=== PATIENT | male | born 1990 | race Caucasian/White ===

== ENCOUNTER 2016-12-23 12:44 | Emergency (ER) | payer SELFPAY ==
[2016-12-23 12:50] VITALS: BP 157/85
--- NOTE | 2016-12-23 14:05 | ER Document Report ---
ED Animal Bite - General Chief Complaint: Snake Bite Stated Complaint: SNAKE BITE Time Seen by Provider: 12/23/16 14:04 Notes: The patient is a 26-year-old male who presents with multiple snakebites on both hands after he found the snake in his child's room and caught it. He brought the snake into the emergency room after cutting off the head. He is not complaining of any pain, redness, numbness, tingling or streaking. TRAVEL OUTSIDE OF THE [place] IN LAST 30 DAYS: No - Related Data Allergies/Adverse Reactions: Penicillins Allergy (Verified 12/23/16 12:49) Past Medical History - General Information source: Patient - Social History Smoking Status: Current Every Day Smoker Family History: Reviewed & Not Pertinent Patient has suicidal ideation: No Patient has homicidal ideation: No Renal/ Medical History: Denies: Hx Peritoneal Dialysis Review of Systems - Review of Systems Notes: REVIEW OF SYSTEMS: CONSTITUTIONAL: -fevers, -chills EENT: -eye pain, -difficulty swallowing, -nasal congestion CARDIOVASCULAR:-chest pain, -syncope. RESPIRATORY: -cough, -SOB GASTROINTESTINAL: -abdominal pain, -nausea, -vomiting, -diarrhea GENITOURINARY: -dysuria, -hematuria MUSCULOSKELETAL: -back pain, -neck pain SKIN: +multiple hand bites HEMATOLOGIC: -easy bruising or bleeding. LYMPHATIC: -swollen, enlarged glands. NEUROLOGICAL: -altered mental status or loss of consciousness, -headache, - neurologic symptoms PSYCHIATRIC: -anxiety, -depression. ALL OTHER SYSTEMS REVIEWED AND NEGATIVE. Physical Exam - Vital signs Vitals: Temp Pulse Resp BP Pulse Ox 97.6 F 77 18 157/85 H 98 12/23/16 12:50 12/23/16 12:50 12/23/16 12:50 12/23/16 12:50 12/23/16 12:50 - Notes Notes: PHYSICAL EXAMINATION: GENERAL: Well-appearing, well-nourished and in no acute distress. HEAD: Atraumatic, normocephalic. EYES: Pupils equal round and reactive to light, extraocular movements intact, sclera anicteric, conjunctiva are normal. ENT: nares patent, oropharynx clear without exudates. Moist mucous membranes. NECK: Normal range of motion, supple without lymphadenopathy LUNGS: Breath sounds clear to auscultation bilaterally and equal. No wheezes rales or rhonchi. HEART: Regular rate and rhythm without murmurs ABDOMEN: Soft, nontender, normoactive bowel sounds. No guarding, no rebound. No masses appreciated. EXTREMITIES: Multiple superficial puncture wounds over dorsal surface of B/L hands, no redness/discharge, all tendons intact and brisk capillary refill, normal range of motion, no pitting or edema. No cyanosis. NEUROLOGICAL: Cranial nerves grossly intact. Normal speech, normal gait. Normal sensory, motor, and reflex exams. PSYCH: Normal mood, normal affect. Course - Re-evaluation Re-evalutation: Snake identified as a rat snake in the emergency room. This is nonvenomous. Patient has no streaking or neuro symptoms to suggest a venomous bite. Patient washed his hands and the superficial wounds with soap and water. Given strict return precautions and he understands. - Vital Signs Vital signs: Temp Pulse Resp BP Pulse Ox 97.6 F 77 18 157/85 H 98 12/23/16 12:50 12/23/16 12:50 12/23/16 12:50 12/23/16 12:50 12/23/16 12:50 Discharge - Discharge Clinical Impression: Bite, snake, non-venomous Qualifiers: Encounter type: initial encounter Qualified Code(s): W59.11XA - Bitten by nonvenomous snake, initial encounter Condition: Stable Disposition: HOME, SELF-CARE Instructions: Snakebites ([facility]) Additional Instructions: Snakebites Of about 3000 snake species throughout the world, only about 15% worldwide and 20% in the [place] are dangerous to humans because of venom or toxic salivary secretions. At least one species of venomous snake is [place] to every state in the except [place], [place], and [place]. Almost all are crotalines (also called pit vipers because of pit-like depressions on either side of the head that are heat-sensing organs), consisting of rattlesnakes, copperheads, and cottonmouths (water moccasins). Between 7000 and 8000 venomous snakebites occur annually. Rattlesnakes account for the majority of bites and almost all deaths. Copperheads and, to a lesser extent, cottonmouths account for most other venomous bites. Coral snakes (elapids) and imported species (in zoos, schools, snake farms, and amateur and professional collections) account for < 1% of all bites. Most victims are males between 17 yr and 27 yr, of whom 50% are intoxicated and deliberately handled or molested the snake. Most bites occur on the upper extremities. Only 5 to 6 deaths occur annually. Risks for include age extremes, handling of captive snakes (rather than wild encounters), delay in treatment, and undertreatment. The venom of most [place] pit vipers produces local effects and coagulopathy and other systemic effects. Results may include local tissue damage ; vascular defects; hemolysis; a disseminated intravascular coagulation (DIC)- like (defibrination) syndrome; and pulmonary, cardiac, renal, and neurologic defects. Venom alters capillary membrane permeability, causing extravasation of electrolytes, albumin, and RBCs through vessel chawla into the envenomated site. This process may occur in the lungs, myocardium, kidneys, peritoneum, and, rarely, the [employer]. Initially, edema, hypoalbuminemia, and hemoconcentration occur. Later, blood and fluids pool in the microcirculation, causing hypotension , lactic acidemia, shock, and, in severe cases, multisystem organ failure. Effective circulating blood volume falls and may contribute to cardiac and renal failure. Clinically significant thrombocytopenia (platelet count < 20,000/ L) is common in severe rattlesnake bites and may occur alone or in combination with other coagulopathies. Venom-induced intravascular clotting may trigger defibrination syndrome, resulting in epistaxis, gingival bleeding, hematemesis, hematuria, internal hemorrhage, as well as spontaneous bleeding at the bite site and venipuncture sites. Renal failure may result from severe hypotension, hemolysis, rhabdomyolysis, nephrotoxic venom effects, or a DIC-like syndrome. Proteinuria, hemoglobinuria, and myoglobinuria may occur in severe rattlesnake bites. The venom of most [place] pit vipers produces very minor changes in neuromuscular conduction, except for Hubbard and Eastern diamondback rattlesnake venom, which may cause serious neurologic deficits. A snakebite, whether from a venomous or nonvenomous snake, usually causes terror , often with autonomic manifestations (eg, nausea, vomiting, tachycardia, diarrhea, diaphoresis), which may be difficult to distinguish from systemic manifestations of envenomation. Nonvenomous snakebites cause only local symptoms and signs, usually pain and 2 to 4 rows of scratches from the snake's upper jaw at the bite site. Symptoms and signs of envenomation may be local, systemic, coagulopathic, or a combination, depending on degree of envenomation and species of snake. About 25% of pit viper bites are dry (venom is not deposited), and no systemic symptoms or signs develop. Local signs include fang edilson(s) and scratch(es). If envenomation has occurred, edema and erythema or ecchymosis at the bite site and adjacent tissues will occur, usually within 30 to 60 min. Edema progresses rapidly and may involve the entire extremity within hours. Lymphangitis and enlarged, tender regional lymph nodes may develop; temperature increases over the bite area. In moderate or severe envenomations, ecchymosis is common and may appear at and around the bite site within 3 to 6 h. Ecchymosis is most severe after bites by Eastern and Western diamondbacks; cottonmouths; and prairie, [place], and timber rattlesnakes. Ecchymosis is less common after copperhead and Hubbard rattlesnake bites. The skin around the bite may appear tense and discolored. Bullae, serous, hemorrhagic, or both, usually appear at the bite site within 8 h. Edema resulting from [place] rattlesnake envenomations is usually limited to dermal and subcutaneous tissues, although severe envenomation rarely produces edema in subfascial tissue, causing compartment syndrome (defined as compartment pressures = 30 mm Hg over 1 h). Necrosis around the bite site is common after rattlesnake envenomations. Most venom effects on soft tissues peak within 2 to 4 days. Systemic manifestations of envenomation include nausea, vomiting, diaphoresis, anxiety, confusion, spontaneous bleeding, fever, hypotension, and shock. Some rattlesnake bite victims develop a rubbery, minty, or metallic taste in their mouth. The venom of most [place] pit vipers produces minor neuromuscular conduction changes, including generalized weakness and paresthesias and muscle fasciculations. Some patients may have alterations in mental status. Venom of Hubbard and Eastern diamondback rattlesnakes may cause serious neurologic deficits, including respiratory depression. Rattlesnake envenomations may induce various coagulation abnormalities, including thrombocytopenia, prolongation of PT (measured by the INR) or activated PTT, hypofibrinogenemia, elevated fibrin degradation products, or a combination of these disorders, resembling a DIC-like (defibrination) syndrome. Thrombocytopenia is usually the first manifestation and may be asymptomatic or, in the presence of a multicomponent coagulopathy, cause spontaneous bleeding. Victims with coagulopathy typically hemorrhage from the bite site or from mucous membranes, hematemesis, hematochezia, hematuria, or a combination. A rise in Hct is an early finding secondary to hemoconcentration. Later, Hct may fall as a result of fluid replacement and blood loss from the DIC-like syndrome. In severe cases , hemolysis may cause a rapid fall in Hct. A dry pit viper bite is diagnosed when no symptoms or signs of envenomation appear over 8 h. Severity of envenomation depends on the size and species of the snake ( rattlesnakes > cottonmouths > copperheads); the amount of venom injected; the number of bites; the location and depth of the bite (eg, envenomation in bites to the head and trunk tends to be more severe than in bites to the extremities) ; the age, size, and health of the victim; the time elapsed before treatment; and the victim's susceptibility (response) to the venom. Severity of envenomation can be graded as minimal, moderate, or severe, based on the most severe of the local findings, systemic symptoms and signs, coagulation parameters, and laboratory results. Grading should be determined by the most severe symptom, sign, or laboratory finding. Envenomation may progress rapidly from minimal to severe and must be continually reassessed. In the emergency department, primary attention should be given to establishing or maintaining an airway, breathing, and circulation. Circumferential extremity measurements should be performed on arrival and every 15 to 20 min until local progression subsides; it is also useful to outline the margins of local edema with an indelible marker to assess progression of local envenomation. All but trivial pit viper bites require a baseline CBC (including platelets), coagulation profile (eg, PT, PTT, fibrinogen), fibrin degradation products, and urinalysis, as well as measurement of electrolytes, BUN, and creatinine. For moderate and severe envenomations, patients require blood typing and cross matching; ECG and chest x-ray; and CK tests, usually every 4 h for the 1st 12 h and then daily or as governed by the patient's status. In coral snake bites, neurotoxic venom effects require monitoring of O2 saturation and baseline and serial pulmonary function tests (eg, peak flow, vital capacity). All pit viper bite victims should be observed closely in the emergency department or ICU for at least 8 h. Patients without evidence of envenomation after 8 h may be sent home after adequate wound care (see Bites and Stings: Adjunctive measures <http://[email or web address]>). Coral snake bite victims should be monitored for at least 12 h in an intensive care setting in the event that respiratory paralysis develops. Envenomation initially assessed as mild may progress to severe within several hours. Without close monitoring and appropriate treatment, the patient could . Treatment may include respiratory support, benzodiazepines for anxiety and sedation, opioids for pain, and fluid replacement and vasopressor support for shock. Most coagulopathies respond to sufficient quantities of neutralizing antivenom. Transfusions (eg, packed RBCs, fresh frozen plasma, cryoprecipitate, platelets) may be required but should not be given before the patient has received adequate quantities of neutralizing antivenom. Tracheostomy may be needed if trismus, laryngeal spasm, or excessive salivation is present. Along with aggressive supportive care, antivenom is the mainstay of treatment for patients with moderate to severe envenomations. For pit viper envenomation, equine-derived antivenom has been largely replaced by ovine-derived Crotalidae polyvalent immune Curly antivenom (purified Curly fragments of IgG harvested from pit viper venom-immunized sheep). The effectiveness of the equine-derived antivenom is time and dose related; it is most effective within 4 h of the envenomation and less effective after 12 h, although it may reverse coagulopathies after 24 h. Recent case reports suggest that Crotalidae polyvalent immune Curly may not be affected by time and dose and may be effective even when started 24 h after envenomation. Crotalidae polyvalent immune uCrly is also safer than equine-derived antivenom, although it can still cause acute (cutaneous or anaphylactic) reactions and delayed hypersensitivity reactions (serum sickness). Forms: Return to Work
== END 2016-12-23 14:08 | disposition home or self-care (01) ==
LOC: ER 12:44
DX: S60.572A Other superficial bite of hand of left hand, initial encounter (principal); S60.571A Other superficial bite of hand of right hand, initial encounter; W59.11XA Bitten by nonvenomous snake, initial encounter; Y93.89 Activity, other specified; Y92.009 Unspecified place in unspecified non-institutional (private) residence as the place of occurrence of the external cause; F17.200 Nicotine dependence, unspecified, uncomplicated
CPT/HCPCS: 99283

== ENCOUNTER 2017-01-06 22:24 | Emergency (ER) | payer SELFPAY ==
[2017-01-06] MEDS ORDERED: ONDANSETRON HCL INJ/PF 4 MG/2 ML SDV IV ONE (22:58)
[2017-01-06] MEDS ORDERED: NORMAL SALINE 1000 ML 1,000 ML IV ONE (22:58)
[2017-01-06 23:23] LABS: ABSOLUTE EOSINOPHILS # (AUTO) 0.1 10^3/uL (0.0-0.6); ABSOLUTE LYMPHOCYTES (AUTO) 3.6 10^3/uL (0.5-4.7); ABSOLUTE MONOCYTES (AUTO) 0.7 10^3/uL (0.1-1.4); ABSOLUTE NEUT (AUTO) 8.1 10^3/uL (1.7-8.2); BASOPHILS % (AUTO) 0.3 % (0-2); HEMATOCRIT 42.7 % (37.9-51.0); HEMOGLOBIN 14.6 g/dL (13.5-17.0); HGB HCT DIFFERENCE 1.1; LYMPHOCYTES % (AUTO) 28.5 % (13-45); MEAN CORPUSCULAR HEMOGLOBIN 29.8 pg (27.0-33.4); MEAN CORPUSCULAR HGB CONC 34.1 g/dL (32.0-36.0); MEAN CORPUSCULAR VOLUME 87 fl (80-97); MONOCYTES % (AUTO) 5.6 % (3-13); RED BLOOD COUNT 4.89 10^6/uL (4.35-5.55); RED CELL DISTRIBUTION WIDTH 12.7 % (11.5-14.0); SEGMENTED NEUTROPHILS % (AUTO) 64.6 % (42-78); WHITE BLOOD COUNT 12.5 10^3/uL (4.0-10.5)
[2017-01-06 23:35] LABS: ALANINE AMINOTRANSFERASE 60 U/L (21-72); ALKALINE PHOSPHATASE 51 U/L (38-126); ANION GAP 11 (5-19); ASPARTATE AMINO TRANSFERASE 38 U/L (17-59); BILIRUBIN,DIRECT 0.2 mg/dL (0.0-0.4); BILIRUBIN,TOTAL 0.6 mg/dL (0.2-1.3); BLOOD UREA NITROGEN 10 mg/dL (7-20); CALCIUM 9.2 mg/dL (8.4-10.2); CARBON DIOXIDE 25 mmol/L (22-30); CHLORIDE 107 mmol/L (98-107); CREATININE RESULT 1.04 mg/dL (0.52-1.25); GLUCOSE 81 mg/dL (75-110); LIPASE 134.2 U/L (23-300); POTASSIUM 4.3 mmol/L (3.6-5.0); TOTAL PROTEIN 6.1 g/dL (6.3-8.2)
--- NOTE | 2017-01-07 00:15 | ER Document Report ---
ED General - General Chief Complaint: Nausea/Vomiting Stated Complaint: VOMITING,DIZZY,WEAKNESS Time Seen by Provider: 01/06/17 22:58 Notes: Patient is a 26-year-old male who presents with complaint of vomiting for the last 3 hours. No abdominal pain. No diarrhea. No fevers. He says he feels dizzy because of the vomiting. The only history of abdominal surgeries is appendectomy. No other complaints at this time. No recent sick contacts. TRAVEL OUTSIDE OF THE [place] IN LAST 30 DAYS: No - Related Data Allergies/Adverse Reactions: Penicillins Allergy (Verified 12/23/16 12:49) Past Medical History - Social History Smoking Status: Unknown if Ever Smoked Frequency of alcohol use: None Drug Abuse: None Family History: Reviewed & Not Pertinent Patient has homicidal ideation: No Renal/ Medical History: Denies: Hx Peritoneal Dialysis Past Surgical History: Reports: Hx Appendectomy, Hx Orthopedic Surgery, Hx Tonsillectomy Review of Systems - Review of Systems Notes: My Normal Review Basic REVIEW OF SYSTEMS: CONSTITUTIONAL : Denies fever, chills, or sweats. Denies recent illness. EENT: Denies eye, ear, throat, or mouth pain or symptoms. Denies nasal or sinus congestion. RESPIRATORY: Denies cough, cold, or chest congestion. Denies shortness of breath, difficulty breathing, or wheezing. GASTROINTESTINAL: Denies abdominal pain. Some vomiting. Denies constipation. MUSCULOSKELETAL: Denies neck or back pain or joint pain or swelling. SKIN: Denies rash or skin lesions. NEUROLOGICAL: Denies altered mental status or loss of consciousness. Denies headache. Denies weakness or paralysis or loss of use of either side. Denies problems with gait or speech. Denies sensory or motor loss. ALL OTHER SYSTEMS REVIEWED AND NEGATIVE. Physical Exam - Vital signs Vitals: Temp Pulse Resp BP Pulse Ox 97.4 F 87 18 135/85 H 98 01/06/17 22:35 01/06/17 22:35 01/06/17 22:35 01/06/17 22:35 01/06/17 22:35 - Notes Notes: General Appearance: Well nourished, alert, cooperative, no acute distress, no obvious discomfort. Vitals: reviewed, See vital signs table. Head: no swelling or tenderness to the head Eyes: PERRL, EOMI, Conjuctiva clear Mouth: No decreasd moisture Throat: No tonsillar inflammation, No airway obstruction, No lymphadenopathy Lungs: No wheezing, No rales, No rhonci, No accessory muscle use, good air exchange bilaterally. Heart: Normal rate, Regular rythm, No murmur, no rub Abdomen: Normal BS, soft, No rigidity, No abdominal tenderness, No guarding, no rebound, no abdominal masses, no organomegaly Extremities: strength 5/5 in all extremities, good pulses in all extremities, no swelling or tenderness in the extremities, no edema. Skin: warm, dry, appropriate color, no rash Neuro: speech clear, oriented x 3, normal affect, responds appropriately to questions. Course - Vital Signs Vital signs: Temp Pulse Resp BP Pulse Ox 97.4 F 87 18 135/85 H 98 01/06/17 22:35 01/06/17 22:35 01/06/17 23:18 01/06/17 22:35 01/06/17 22:35 - Laboratory Result Diagrams: 01/06/17 23:09 01/06/17 23:09 Laboratory results interpreted by me: 01/06/17 01/06/17 23:09 23:09 WBC 12.5 H Total Protein 6.1 L - Transfer of Care Notes: 01/07/17 00:45 Patient's nausea is improved. He has had no further vomiting. His labs are normal. He has no pain to palpation of his abdomen. I feel he is safe to be discharged home. I encouraged him return to ER if he has recurrent vomiting, fevers, or any abdominal pain. Patient agrees with plan and will be discharged home. Dictation of this chart was performed using voice recognition software; therefore, there may be some unintended grammatical errors. Discharge - Discharge Clinical Impression: Vomiting Qualifiers: Vomiting type: unspecified Vomiting Intractability: non-intractable Nausea presence: with nausea Qualified Code(s): R11.2 - Nausea with vomiting, unspecified Condition: Good Disposition: HOME, SELF-CARE Additional Instructions: VOMITING: Vomiting (or nausea without vomiting) can be caused by many other different problems. It can mean that something's wrong with the stomach, such as ulcers or inflammation or the intestinal tract, such as appendicitis. But it can also be a symptom of a problem that has nothing to do with the stomach or intestines. Vomiting is common with severe headaches, earaches, tonsillitis, and kidney infections, etc. We see it with pneumonia or heart attacks. Drugs can cause nausea and vomiting. Many abdominal problems cause vomiting; for example, gallstones, kidney stones, pancreatitis, and intestinal obstruction ( blocked bowels). In most cases, curing the vomiting depends on fixing the problem that caused it. For temporary relief, we may use an anti-nausea medicine. For home use, we can prescribe suppositories, chewable pills, pills that dissolve in the mouth, or liquid anti-nausea drugs. If the vomiting seems to be caused by a problem in the stomach, acid-suppressing drugs may be prescribed as well. It's important to avoid dehydration. Sip small amounts of clear liquids ( soft drinks, tea, broth, etc) . Try to take fluids frequently even if you are vomiting to prevent dehydration. Take increasing amounts of fluid and when liquids are being consumed successfully, advance to small amounts of bland food (toast, soups, mashed potatoes, etc.) until you are able to resume a regular diet. Avoid aspirin, tobacco, and alcohol. If the vomiting worsens, if the problem that's making you vomit worsens, or if there's evidence of bleeding in the stomach (such as black, tarry stool, or bloody or black vomit), you should return immediately. Also, return if abdominal pain worsens or becomes localized to one area or you develop high fever. Call your doctor if you aren't improved in 24 hours. VIRAL SYNDROME: The physician has diagnosed a viral infection. Viruses not only cause "colds," but can cause many different symptoms including generalized aching, fever, headache, cough, diarrhea, nausea, vomiting, and fatigue. The treatment, for the most part, is simply relief of symptoms. This means that antibiotics are usually not given. Rest, fluids, pain medications and, occasionally, medication for the specific symptoms that are most bothersome will be prescribed. Use good handwashing to avoid passing the virus to others. Shared toys should be cleaned with disinfectant. Clean the toilets, sinks, and counter surfaces in bathrooms. Launder clothing in hot water. Contact the physician if you develop any new or unusual symptoms such as severe headache, stiff neck, high fever, chest pain, productive cough, or shortness of breath. You should be rechecked if you don't see marked improvement within seven to 10 days. INTRAVENOUS (I V) FLUIDS: As part of your care today, you received intravenous (IV) fluids. IV fluids are administered to patients who are dehydrated or to those who have certain chemical (electrolyte) abnormalities that need correcting. ANTINAUSEA MEDICATION: You have been given a medication to suppress nausea and vomiting. This type of medication can be given as a shot, pill, or suppository. It will usually last for many hours. Pills and shots usually last six to eight hours. For the typical illness, only one or two doses of the medication may be necessary. Mild lightheadedness may occur. This type of medicine can cause drowsiness. Do not drive or operate dangerous machinery while under its influence. Do not mix with alcohol. See your doctor at once if you have muscle spasms or tightness, or uncontrollable motions (particularly of the neck, mouth, or jaw). Persistent vomiting or severe lightheadedness should also be evaluated by the physician. FOLLOW-UP CARE: If you have been referred to a physician for follow-up care, call the physician s office for an appointment as you were instructed or within the next two days. If you experience worsening or a significant change in your symptoms, notify the physician immediately or return to the Emergency Department at any time for re-evaluation. Please return to the ER immediately if you develop worsening pain, fevers, vomiting, or feel unwell. Please drink clear liquids for the next 12 hours and than slowly progress to a bland diet. Prescriptions: Ondansetron [Zofran Odt 4 mg Tablet] 1 tab PO Q4H PRN #15 tab.rapdis PRN Reason: For Nausea/Vomiting Forms: Return to Work
[2017-01-07 00:17] LABS: APPEARANCE,URINE CLEAR; BILIRUBIN,URINE NEGATIVE (NEGATIVE); GLUCOSE, URINE NEGATIVE (NEGATIVE); KETONES,URINE NEGATIVE (NEGATIVE); LEUKOCYTE ESTERASE,URINE NEGATIVE (NEGATIVE); NITRITE,URINE NEGATIVE (NEGATIVE); PROTEIN,URINE NEGATIVE (NEGATIVE); URINE SPECIFIC GRAVITY 1.016; UROBILINOGEN,URINE NEGATIVE mg/dL (<2.0)
[2017-01-07] MEDS ORDERED: ONDANSETRON 4 MG TAB.RAPDIS PO ONE (00:41)
[2017-01-07 01:21] VITALS: BP 130/88
== END 2017-01-07 01:21 | disposition home or self-care (01) ==
LOC: ER 22:24
DX: R11.2 Nausea with vomiting, unspecified (principal); R42 Dizziness and giddiness; R53.1 Weakness
CPT/HCPCS: 99283; 96361; 96374; 36415; 83690; 85025; 80053; 81001; J2405; J7030

== ENCOUNTER 2017-05-30 14:25 | Emergency (ER) | payer SELFPAY ==
[2017-05-30] MEDS ORDERED: KETOROLAC TROMETHAMINE 60 MG/2 ML SDV IM ONE (15:48)
--- NOTE | 2017-05-30 15:51 | ER Document Report ---
ED Fall - General Chief Complaint: Fall Injury Stated Complaint: FALL/RIGHT LEG PAIN Time Seen by Provider: 05/30/17 15:27 Mode of Arrival: Ambulatory Information source: Patient TRAVEL OUTSIDE OF THE [place] IN LAST 30 DAYS: No - HPI Occurred: Just prior to arrival Where: Home Context: Slipped Associated symptoms: None Location of injury/pain: Hip Quality of pain: Achy Severity: Moderate Notes: Patient states that he was walking on the steps when he slipped and went down approximately 5 wooden steps at home. Injured his right hip. He now has right hip pain and then pain going down the posterior calf and toes. He denies any significant back pain. He denies striking his head. He denies loss of consciousness. No blood thinners. He denies any bowel or bladder dysfunction. No fever. No abdominal pain. No chest pain. No neck pain. No blurred or loss vision. Complains of some tingling from the right knee down to the foot. No other injuries, no other complaints. - Related data Allergies/Adverse Reactions: Penicillins Allergy (Verified 05/30/17 14:30) Past Medical History - Social History Smoking Status: Current Every Day Smoker Chew tobacco use (# tins/day): No Frequency of alcohol use: None Drug Abuse: None Family History: Reviewed & Not Pertinent Renal/ Medical History: Denies: Hx Peritoneal Dialysis Past Surgical History: Reports: Hx Appendectomy, Hx Orthopedic Surgery, Hx Tonsillectomy - Immunizations Hx Diphtheria, Pertussis, Tetanus Vaccination: Yes Review of Systems - Review of Systems -: Yes All other systems reviewed and negative Physical Exam - Vital signs Vitals: Temp Pulse BP Pulse Ox 97.7 F 72 142/83 H 93 05/30/17 14:31 05/30/17 14:31 05/30/17 14:31 05/30/17 14:31 - Notes Notes: GENERAL: alert, cooperative, nontoxic, no distress. HEAD: normocephalic, atraumatic EYES: conjunctiva pink without discharge, no external redness or swelling. EARS: no external swelling, no external redness NOSE: atraumatic, no external swelling MOUTH/THROAT: mucous membranes moist and pink, posterior pharynx without erythema, swelling, exudate. No trismus or drooling. NECK: soft, supple, full range of motion, no meningismus. No midline tenderness step-offs or crepitus to palpation. CHEST: no distress, lungs clear and equal throughout. No wheezing, rales, rhonchi. CARDIAC: regular rate and rhythm, no murmur, normal capillary refill, normal pulses. No peripheral edema noted. ABDOMEN: soft, nontender, no pusatile mass. BACK: No tenderness to palpation of the lumbar spine. EXTREMITIES: Tenderness to palpation of the right lateral hip. No swelling. No obvious deformity. No redness. Slightly limited range of motion secondary to pain. Normal pulse and sensation distally. Knee exam is completely normal. NEURO: alert and oriented -3, no focal deficits, full range of motion of all extremities. 5 out of 5 flexion and extension of the lower extremities bilaterally. Patellar and Achilles deep tendon reflexes are +2 bilaterally. Normal sensation with no saddle anesthesia. PYSCH: appropriate mood, affect. Patient is cooperative. SKIN: pink, warm, dry, no rash. Course - Re-evaluation Re-evalutation: 05/30/17 16:59 Patient is nontoxic appearing with stable vitals. Patient slipped and fell injuring his right hip. He is able to ambulate on the right hip but with pain. There is no sign of infection. X-ray showed no acute bony abnormality of the lumbar spine or the right hip. He has no sign of cauda equina or epidural abscess/bleed. Patient has normal neurovascular exam. The patient will be discharged home with prescription for Voltaren and Ultram. Follow-up if not better in 1 week, sooner for increased pain, fever, weakness, difficulty controlling bowels or bladder, or any further concerns. 05/30/17 17:00 The patient is noted to have elevated blood pressure during today's emergency department visit. The patient was informed of this finding. The patient was instructed that this may be related to pre-hypertension and requires further evaluation with a primary care provider. The patient has no hypertensive symptoms at this time. The patient's emergency department workup and current diagnosis were explained to the patient and or family. Follow-up instructions were provided. Medications if prescribed were discussed. Instructions for when to return to the emergency department including specific worrisome symptoms were discussed with the patient and/or family. - Vital Signs Vital signs: Temp Pulse Resp BP Pulse Ox 97.7 F 72 142/83 H 93 05/30/17 14:31 05/30/17 14:31 05/30/17 14:31 05/30/17 14:31 - Diagnostic Test Radiology reviewed: Image reviewed, Reports reviewed - Negative right hip and lumbar spine. Discharge - Discharge Clinical Impression: Contusion of right hip Qualifiers: Encounter type: initial encounter Qualified Code(s): S70.01XA - Contusion of right hip, initial encounter Sprain of right hip Qualifiers: Encounter type: initial encounter Qualified Code(s): S73.101A - Unspecified sprain of right hip, initial encounter Condition: Stable Disposition: HOME, SELF-CARE Instructions: Contusion ([facility]), Muscle Strain ([facility]) Additional Instructions: Take medications as prescribed. Ice to sore area. Use crutches as needed for comfort, but try to wean herself off the crutches as soon as possible. Follow- up if not better in 1 week, sooner for increased pain, fever, redness, numbness , tingling, weakness, difficulty controlling her bowels or bladder, or any further concerns. Your blood pressure was elevated during today's visit. Have this rechecked with your doctor. The medication you were prescribed today may cause drowsiness. Do not drive or operate heavy machinery while taking this medication. Prescriptions: Tramadol HCl [Ultram 50 mg Tablet] 50 mg PO Q6HP PRN #12 tablet PRN Reason: Diclofenac Sodium [Voltaren 50 Mg Tablet.] 50 mg PO BID #20 tablet. Forms: Elevated Blood Pressure, Return to Work Referrals: JOSE ALBERTO ELIZABETH DO [ACTIVE STAFF] - Follow up as needed [facility] [Provider Group] - Follow up as needed
--- NOTE | 2017-05-30 16:36 | RADIOLOGY REPORT (SQ) ---
EXAM DESCRIPTION: L SPINE WHOLE COMPLETED DATE/TIME: 05/30/2017 4:12 pm REASON FOR STUDY: PAIN, FALL COMPARISON: None. NUMBER OF VIEWS: Five views including obliques. TECHNIQUE: AP, lateral, oblique, and sacral radiographic images acquired of the lumbar spine. LIMITATIONS: None. FINDINGS: MINERALIZATION: Normal. SEGMENTATION: Normal. No transitional anatomy. ALIGNMENT: Normal. VERTEBRAE: Maintained height. No fracture or worrisome bone lesion. DISCS: Preserved height. No significant osteophytes or end plate irregularity. POSTERIOR ELEMENTS: Pedicles and facets are intact. No pars defect or posterior arch defects. HARDWARE: None in the spine. PARASPINAL SOFT TISSUES: Normal. PELVIS: Intact as visualized. No fractures or worrisome bone lesions. SI joints intact. OTHER: No other significant finding. IMPRESSION: NORMAL 5 VIEW LUMBAR SPINE. TECHNICAL DOCUMENTATION: JOB ID: [id number] [employer]- All Rights Reserved
--- NOTE | 2017-05-30 16:37 | RADIOLOGY REPORT (SQ) ---
EXAM DESCRIPTION: HIP RIGHT AP/LATERAL COMPLETED DATE/TIME: 05/30/2017 4:12 pm REASON FOR STUDY: PAIN, FALL COMPARISON: None. NUMBER OF VIEWS: Two views. TECHNIQUE: AP pelvis and additional frog-leg view of the right hip. LIMITATIONS: None. FINDINGS: MINERALIZATION: Normal. RIGHT HIP: No fracture or dislocation. No worrisome bone lesions. LEFT HIP: No fracture or dislocation. No worrisome bone lesions. PUBIS AND ISCHIUM: No fracture. PELVIS: No fracture. SACRUM: No fracture or dislocation. No worrisome bone lesions. LOWER LUMBAR SPINE: No fracture or dislocation. No worrisome bone lesions. No significant disc disea se. SOFT TISSUES: No findings. OTHER: No other significant finding. IMPRESSION: NEGATIVE STUDY OF THE RIGHT HIP. NO RADIOGRAPHIC EVIDENCE OF ACUTE INJURY. TECHNICAL DOCUMENTATION: JOB ID: [id number] [employer]- All Rights Reserved
[2017-05-30 17:22] VITALS: BP 154/98
== END 2017-05-30 17:22 | disposition home or self-care (01) ==
LOC: ER 14:25
DX: S73.101A Unspecified sprain of right hip, initial encounter (principal); W10.8XXA Fall (on) (from) other stairs and steps, initial encounter; Y92.009 Unspecified place in unspecified non-institutional (private) residence as the place of occurrence of the external cause; R20.2 Paresthesia of skin; R03.0 Elevated blood-pressure reading, without diagnosis of hypertension; F17.200 Nicotine dependence, unspecified, uncomplicated; Z88.0 Allergy status to penicillin
CPT/HCPCS: 99283; 96372; 73502; 72110; J1885

== ENCOUNTER 2018-01-19 16:50 | Emergency (ER) | payer SELFPAY ==
[2018-01-19] MEDS ORDERED: IPRATROPIUM/ALBUTEROL 0.5-2.5 MG/3 ML AMPUL NEB ONE (17:54)
[2018-01-19] MEDS ORDERED: NORMAL SALINE 1000 ML 1,000 ML IV ONE (17:54)
[2018-01-19] MEDS ORDERED: ONDANSETRON HCL INJ/PF 4 MG/2 ML SDV IV ONE (17:55)
--- NOTE | 2018-01-19 17:58 | ER Document Report ---
ED General Pain - General Chief Complaint: Pain All Over Stated Complaint: VOMITING/DIARRHEA Time Seen by Provider: 01/19/18 17:21 Notes: 27-year-old male to the emergency department chief complaint of nausea, vomiting , diarrhea and generally not feeling well. Symptoms have been present on and off for approximately 3 days. States he cannot keep anything down. Feeling dehydrated and weak. Has body aches. No neck pain. No fever. Does not have an appendix. Nothing seems to make it better or worse. Also has a cough and shortness of breath. No abnormal rash. No problems with eyes, ears, nose, throat. No sick contacts at home. TRAVEL OUTSIDE OF THE [place] IN LAST 30 DAYS: No - HPI Onset/Duration: Gradual, Constant - Related Data Allergies/Adverse Reactions: Penicillins Allergy (Verified 01/19/18 17:36) Past Medical History - General Information source: Patient - Social History Smoking Status: Current Every Day Smoker Chew tobacco use (# tins/day): No Frequency of alcohol use: Occasional Drug Abuse: None Lives with: Family Family History: Reviewed & Not Pertinent Patient has suicidal ideation: No Patient has homicidal ideation: No Renal/ Medical History: Denies: Hx Peritoneal Dialysis Past Surgical History: Reports: Hx Appendectomy, Hx Orthopedic Surgery, Hx Tonsillectomy - Immunizations Hx Diphtheria, Pertussis, Tetanus Vaccination: Yes Review of Systems - Review of Systems Constitutional: Chills. denies: Fever, Malaise EENT: No symptoms reported Cardiovascular: No symptoms reported. denies: Chest pain, Palpitations, Heart racing Respiratory: Cough, Short of breath, Wheezing. denies: Hurts to breathe Gastrointestinal: Diarrhea, Nausea, Vomiting. denies: Abdominal pain Genitourinary: denies: Burning, Dysuria, Discharge Musculoskeletal: denies: Back pain, Joint pain, Muscle pain Skin: denies: Dryness, Lesions, Lumps, Rash Hematologic/Lymphatic: denies: Anemia, Blood clots, Easy bleeding, Easy bruising Neurological/Psychological: denies: Confusion, Weakness, Numbness Physical Exam - Vital signs Vitals: Temp Pulse Resp BP Pulse Ox 97.9 F 98 20 134/84 H 96 01/19/18 16:58 01/19/18 16:58 01/19/18 16:58 01/19/18 16:58 01/19/18 16:58 Interpretation: Normal - General General appearance: Appears well, Alert - HEENT Head: Normocephalic, Atraumatic Eyes: Normal Pupils: PERRL Mucous membranes: Dry - Respiratory Respiratory status: No respiratory distress Chest status: Nontender Breath sounds: Nonproductive cough, Wheezing Chest palpation: Normal - Cardiovascular Rhythm: Regular Heart sounds: Normal auscultation Murmur: No - Abdominal Inspection: Normal Distension: No distension Bowel sounds: Normal Tenderness: Nontender. No: Tender, McBurney's point, Nash's sign, Guarding, Rebound Organomegaly: No organomegaly - Back Back: Normal, Nontender - Extremities General upper extremity: Normal inspection, Nontender, Normal color, Normal ROM , Normal temperature General lower extremity: Normal inspection, Nontender, Normal color, Normal ROM , Normal temperature, Normal weight bearing. No: All's sign - Neurological Neuro grossly intact: Yes Cognition: Normal Orientation: AAOx4 [place] Coma Scale Eye Opening: Spontaneous [place] Coma Scale Verbal: Oriented [place] Coma Scale Motor: Obeys Commands [place] Coma Scale Total: 15 Speech: Normal Motor strength normal: LUE, RUE, LLE, RLE Sensory: Normal - Psychological Associated symptoms: Normal affect, Normal mood - Skin Skin Temperature: Warm Skin Moisture: Dry Skin Color: Normal Course - Re-evaluation Re-evalutation: 01/19/18 18:01 Slightly dry buccal mucosa. Will give some IV fluids, chest x-ray due to the symptoms he is describing and the wheezing and cough. We will give a breathing treatment. Zofran. Toradol and reassess. 01/19/18 19:01 Patient feeling much better at this time. Tolerating p.o. Slightly elevated LFTs. Add on hepatitis ABC panel. Will give medication for nausea and vomiting. Pepcid. Work note. Advised to return for any worsening symptoms or concerns. - Vital Signs Vital signs: Temp Pulse Resp BP Pulse Ox 97.9 F 98 20 134/84 H 96 01/19/18 16:58 01/19/18 16:58 01/19/18 16:58 01/19/18 16:58 01/19/18 16:58 - Laboratory Result Diagrams: 01/19/18 18:10 01/19/18 18:10 Laboratory results interpreted by me: 01/19/18 18:10 Sodium 145.2 H AST 85 H ALT 87 H Discharge - Discharge Clinical Impression: Gastroenteritis Condition: Good Disposition: HOME, SELF-CARE Instructions: Antinausea Medication ([facility]), Clear Liquid Diet ([facility]), Gastroenteritis (adult) ([facility]), Intravenous (IV) Fluids ([facility]), Oral Narcotic Medication ([facility]), Vomiting ([facility]) Additional Instructions: Avoid contact with others until symptoms are completely resolved. Drink plenty of liquids. Take your medications as prescribed. Return immediately if symptoms are getting worse especially if they are no better in 24 hours or if they are getting worse. Prescriptions: Ondansetron [Zofran Odt 4 mg Tablet] 1 - 2 tab PO Q4H PRN #15 tab.rapdis PRN Reason: For Nausea/Vomiting Ranitidine HCl [Zantac] 150 mg PO BID 7 Days #14 tablet Forms: Return to Work
[2018-01-19] MEDS ORDERED: KETOROLAC TROMETHAMINE INJ/PF 30 MG/1 ML SDV IV ONE (17:59)
--- NOTE | 2018-01-19 18:26 | RADIOLOGY REPORT (SQ) ---
EXAM DESCRIPTION: CHEST 2 VIEWS COMPLETED DATE/TIME: 01/19/2018 6:15 pm REASON FOR STUDY: cough COMPARISON: None. EXAM PARAMETERS: NUMBER OF VIEWS: two views TECHNIQUE: Digital Frontal and Lateral radiographic views of the chest acquired. RADIATION DOSE: NA LIMITATIONS: none FINDINGS: LUNGS AND PLEURA: No opacities, masses or pneumothorax. No pleural effusion. MEDIASTINUM AND HILAR STRUCTURES: No masses or contour abnormalities. HEART AND VASCULAR STRUCTURES: Heart normal size. No evidence for failure. BONES: No acute findings. HARDWARE: None in the chest. OTHER: No other significant finding. IMPRESSION: NO ACUTE RADIOGRAPHIC FINDING IN THE CHEST. TECHNICAL DOCUMENTATION: JOB ID: [id number] [employer]- All Rights Reserved Reading location - IP/workstation name: [email or web address]
[2018-01-19 18:30] LABS: ABSOLUTE EOSINOPHILS # (AUTO) 0.2 10^3/uL (0.0-0.6); ABSOLUTE LYMPHOCYTES (AUTO) 1.7 10^3/uL (0.5-4.7); ABSOLUTE MONOCYTES (AUTO) 0.5 10^3/uL (0.1-1.4); ABSOLUTE NEUT (AUTO) 6.6 10^3/uL (1.7-8.2); BASOPHILS % (AUTO) 0.3 % (0-2); HEMATOCRIT 45.2 % (37.9-51.0); HEMOGLOBIN 15.8 g/dL (13.5-17.0); LYMPHOCYTES % (AUTO) 18.3 % (13-45); MEAN CORPUSCULAR HEMOGLOBIN 30.3 pg (27.0-33.4); MEAN CORPUSCULAR HGB CONC 34.9 g/dL (32.0-36.0); MEAN CORPUSCULAR VOLUME 87 fl (80-97); PLATELET COUNT 190 10^3/uL (150-450); RED BLOOD COUNT 5.21 10^6/uL (4.35-5.55); SEGMENTED NEUTROPHILS % (AUTO) 73.4 % (42-78); TOTAL CELLS COUNTED % (AUTO) 100 %
[2018-01-19 18:51] LABS: ALANINE AMINOTRANSFERASE 87 U/L (21-72); ALBUMIN 4.2 g/dL (3.5-5.0); ALKALINE PHOSPHATASE 60 U/L (38-126); ANION GAP 13 (5-19); ASPARTATE AMINO TRANSFERASE 85 U/L (17-59); BILIRUBIN,DIRECT 0.3 mg/dL (0.0-0.4); BILIRUBIN,TOTAL 1.3 mg/dL (0.2-1.3); BLOOD UREA NITROGEN 12 mg/dL (7-20); CALCIUM 9.3 mg/dL (8.4-10.2); CARBON DIOXIDE 27 mmol/L (22-30); CHLORIDE 105 mmol/L (98-107); GLUCOSE 86 mg/dL (75-110); LIPASE 92.2 U/L (23-300); POTASSIUM 4.5 mmol/L (3.6-5.0); SODIUM 145.2 mmol/L (137-145); TOTAL PROTEIN 6.7 g/dL (6.3-8.2)
[2018-01-19] MEDS ORDERED: HYDROCODONE/ACETAMINOPHEN 5-325 MG (6 TAB/ER DISP) PO PRN (19:49)
[2018-01-19 20:13] VITALS: BP 134/82
[2018-01-21 07:38] LABS: HEPATITIS A AB IGM Negative (Negative); HEPATITIS B CORE AB IGM Negative (Negative); HEPATITS B SURFACE ANTIGEN Negative (Negative)
[2018-01-21 08:54] LABS: HEPATITIS C VIRUS ANTIBODY <0.1 s/co ratio (0.0-0.9)
== END 2018-01-19 20:11 | disposition home or self-care (01) ==
LOC: ER 16:50
DX: K52.9 Noninfective gastroenteritis and colitis, unspecified (principal); M79.1 Myalgia; F17.200 Nicotine dependence, unspecified, uncomplicated; R05 Cough; R06.02 Shortness of breath; Z88.0 Allergy status to penicillin
CPT/HCPCS: 94640; 99284; 96361; 96374; 96375; 36415; 83690; 85025; 80053; 80074; 71046; J1885; J2405; J7030; J7620

== ENCOUNTER 2018-05-16 22:31 | Emergency (ER) | payer SELFPAY ==
[2018-05-16] MEDS ORDERED: NORMAL SALINE 1000 ML 1,000 ML IV ONE (23:00)
[2018-05-16 23:04] LABS: ABSOLUTE BASOPHILS # (AUTO) 0.1 10^3/uL (0.0-0.2); ABSOLUTE EOSINOPHILS # (AUTO) 0.1 10^3/uL (0.0-0.6); ABSOLUTE LYMPHOCYTES (AUTO) 2.9 10^3/uL (0.5-4.7); ABSOLUTE MONOCYTES (AUTO) 0.5 10^3/uL (0.1-1.4); ABSOLUTE NEUT (AUTO) 8.2 10^3/uL (1.7-8.2); BASOPHILS % (AUTO) 0.7 % (0-2); EOSINOPHILS % (AUTO) 1.1 % (0-6); HEMATOCRIT 41.8 % (37.9-51.0); HEMOGLOBIN 14.6 g/dL (13.5-17.0); LYMPHOCYTES % (AUTO) 24.6 % (13-45); MEAN CORPUSCULAR HEMOGLOBIN 29.8 pg (27.0-33.4); MEAN CORPUSCULAR HGB CONC 34.9 g/dL (32.0-36.0); MEAN CORPUSCULAR VOLUME 85 fl (80-97); MONOCYTES % (AUTO) 4.6 % (3-13); PLATELET COUNT 191 10^3/uL (150-450); RED CELL DISTRIBUTION WIDTH 12.8 % (11.5-14.0); TOTAL CELLS COUNTED % (AUTO) 100 %; WHITE BLOOD COUNT 11.9 10^3/uL (4.0-10.5)
[2018-05-16 23:21] LABS: ALANINE AMINOTRANSFERASE 69 U/L (21-72); ALBUMIN 4.4 g/dL (3.5-5.0); ALKALINE PHOSPHATASE 58 U/L (38-126); ANION GAP 13 (5-19); ASPARTATE AMINO TRANSFERASE 63 U/L (17-59); BILIRUBIN,DIRECT 0.3 mg/dL (0.0-0.4); BILIRUBIN,TOTAL 0.7 mg/dL (0.2-1.3); BLOOD UREA NITROGEN 11 mg/dL (7-20); CALCIUM 9.8 mg/dL (8.4-10.2); CARBON DIOXIDE 24 mmol/L (22-30); CHLORIDE 108 mmol/L (98-107); CREATINE KINASE 601 U/L (55-170); GLUCOSE 85 mg/dL (75-110); POTASSIUM 4.6 mmol/L (3.6-5.0); SODIUM 144.8 mmol/L (137-145); TOTAL PROTEIN 7.3 g/dL (6.3-8.2)
[2018-05-16 23:33] LABS: CREATINE KINASE MB 2.98 ng/mL (<4.55)
[2018-05-16 23:36] LABS: TROPONIN I < 0.012 ng/mL
[2018-05-17] MEDS ORDERED: RINGERS SOLUTION,LACTATED 1,000 ML IV ONE (00:01)
--- NOTE | 2018-05-17 00:05 | ER Document Report ---
ED General - General Chief Complaint: Syncope Stated Complaint: POSSIBLE SYNCOPE Time Seen by Provider: 05/16/18 23:41 Notes: Patient is a 28-year-old male who presents with complaint of body aches and feeling very faint having a syncopal episode. He says this occurred after he was working outside in heat all day helping move a heavy should. He says he is after doing this he felt nauseous and just felt exhausted. When he got out of his car when he got home he felt himself passing out went to the ground. Since then he is just had a lot of body aches and muscle soreness has felt weak. In triage she did order baseline blood work and IV fluids. Is received a liter of IV fluids as far as says that he is starting to feel improved. He has no chronic medical problems. Is not taking medications on a regular basis. He says he is otherwise healthy. TRAVEL OUTSIDE OF THE [place] IN LAST 30 DAYS: No - Related Data Allergies/Adverse Reactions: Penicillins Allergy (Verified 01/19/18 17:36) Past Medical History - Social History Smoking Status: Current Every Day Smoker Chew tobacco use (# tins/day): No Frequency of alcohol use: None Drug Abuse: None Family History: Reviewed & Not Pertinent Patient has suicidal ideation: No Patient has homicidal ideation: No Renal/ Medical History: Denies: Hx Peritoneal Dialysis Past Surgical History: Reports: Hx Appendectomy, Hx Orthopedic Surgery - tendon repair R hand, Hx Tonsillectomy - Immunizations Hx Diphtheria, Pertussis, Tetanus Vaccination: Yes Review of Systems - Review of Systems Notes: My Normal Review Basic REVIEW OF SYSTEMS: CONSTITUTIONAL : Denies fever, chills, or sweats. Denies recent illness. EENT: Denies eye, ear, throat, or mouth pain or symptoms. Denies nasal or sinus congestion. CARDIOVASCULAR: Denies chest pain. RESPIRATORY: Denies cough, cold, or chest congestion. Denies shortness of breath, difficulty breathing, or wheezing. GASTROINTESTINAL: Denies abdominal pain. Some nausea. GENITOURINARY: Denies difficulty urinating, painful urination, burning, frequency, or blood in urine. MUSCULOSKELETAL: Muscle soreness SKIN: Denies rash or skin lesions. NEUROLOGICAL: Syncopal episode. Denies headache. Denies weakness or paralysis or loss of use of either side. Denies problems with gait or speech. Denies sensory or motor loss. ALL OTHER SYSTEMS REVIEWED AND NEGATIVE. Physical Exam - Vital signs Vitals: Temp Pulse Resp BP Pulse Ox 98.5 F 89 14 142/80 H 98 05/16/18 22:36 05/16/18 22:36 05/16/18 22:36 05/16/18 22:36 05/16/18 22:36 - Notes Notes: General Appearance: Well nourished, alert, cooperative, no acute distress, no obvious discomfort. Vitals: reviewed, See vital signs table. Head: no swelling or tenderness to the head Eyes: PERRL, EOMI, Conjuctiva clear Mouth: No decreasd moisture Throat: No tonsillar inflammation, No airway obstruction, No lymphadenopathy Neck: Supple, no neck tenderness Lungs: No wheezing, No rales, No rhonci, No accessory muscle use, good air exchange bilaterally. Heart: Normal rate, Regular rythm, No murmur, no rub Abdomen: Normal BS, soft, No rigidity, No abdominal tenderness, No guarding, no rebound, no abdominal masses, Extremities: strength 5/5 in all extremities, good pulses in all extremities, no swelling or tenderness in the extremities, no edema. Skin: warm, dry, appropriate color, no rash Neuro: speech clear, oriented x 3, normal affect, responds appropriately to questions. Cranial nerves II through XII are intact. Patient moves all extremities without difficulty. Course - Re-evaluation Re-evalutation: 05/17/18 06:18 Patient is feeling much improved after receiving the IV fluids. He looks well. His laboratory evaluation is unremarkable except for mild elevation of CPK. At this time so he states be discharged home. I encouraged him to stay out of the heat for the next 24-48 hours. I encouraged him to drink non-caffeinated liquids. Informed to return to ER if he has vomiting, recurrent dizziness or lightheadedness, or if he feels he is worsening in any way. Patient agrees with plan will be discharged home. Dictation of this chart was performed using voice recognition software; therefore, there may be some unintended grammatical errors. - Vital Signs Vital signs: Temp Pulse Resp BP Pulse Ox 98.5 F 77 17 137/77 H 99 05/16/18 22:36 05/17/18 01:46 05/17/18 01:46 05/17/18 01:46 05/17/18 01:46 - Laboratory Result Diagrams: 05/16/18 22:55 05/16/18 22:55 Laboratory results interpreted by me: 05/16/18 05/16/18 05/17/18 22:55 22:55 00:40 WBC 11.9 H Chloride 108 H AST 63 H Creatine Kinase 601 H Urine Urobilinogen 2.0 H - EKG Interpretation by Me Additional EKG results interpreted by me: 05/17/18 00:04 EKG is reviewed and interpreted by me. EKG shows sinus rhythm with rate of [address] segment elevation or depression. No ischemic T wave inversions. DE interval, QRS duration, QTc intervals are within normal range. No old EKG available for comparison. Discharge - Discharge Clinical Impression: Dehydration Syncope Qualifiers: Syncope type: unspecified Qualified Code(s): R55 - Syncope and collapse Heat exhaustion Qualifiers: Encounter type: initial encounter Qualified Code(s): T67.5XXA - Heat exhaustion , unspecified, initial encounter Condition: Good Disposition: HOME, SELF-CARE Additional Instructions: Please rest indoors over the next 24 hours and continue to hydrate with noncaffeinated liquids. Please return to the ER if you have recurrent vomiting, fevers, worsening pain, or if you feel that you are worsening in any way. Forms: Return to Work
[2018-05-17 01:05] LABS: APPEARANCE,URINE CLEAR; BILIRUBIN,URINE NEGATIVE (NEGATIVE); COLOR,URINE YELLOW; GLUCOSE, URINE NEGATIVE (NEGATIVE); KETONES,URINE NEGATIVE (NEGATIVE); LEUKOCYTE ESTERASE,URINE NEGATIVE (NEGATIVE); NITRITE,URINE NEGATIVE (NEGATIVE); PROTEIN,URINE NEGATIVE (NEGATIVE); URINE SPECIFIC GRAVITY 1.021
[2018-05-17] MEDS ORDERED: ONDANSETRON ODT 4 MG TAB (6 TAB/ER DISP) PO PRN (01:22)
[2018-05-17 01:47] VITALS: BP 137/77
--- NOTE | 2018-05-17 09:09 | EKG REPORT ---
SEVERITY:- NORMAL ECG - SINUS RHYTHM : Confirmed by: Stephanie Livingston 17-May-2018 09:08:42
== END 2018-05-17 01:46 | disposition home or self-care (01) ==
LOC: ER 22:31
DX: T67.5XXA Heat exhaustion, unspecified, initial encounter (principal); X58.XXXA Exposure to other specified factors, initial encounter; E86.0 Dehydration; R55 Syncope and collapse; R11.0 Nausea; R29.898 Other symptoms and signs involving the musculoskeletal system; F17.200 Nicotine dependence, unspecified, uncomplicated
CPT/HCPCS: 36415; 80053; 81001; 82550; 82553; 83735; 84484; 85025; 93005; 93010; 96360; 96361; 99284

== ENCOUNTER 2019-02-01 00:42 | Emergency (ER) | payer OTHER ==
[2019-02-01] MEDS ORDERED: OXYCODONE-ACETAMINOPHEN 5-325 MG TABLET PO ONE (05:04)
[2019-02-01] MEDS ORDERED: IBUPROFEN 600 MG TABLET PO ONE (05:04)
[2019-02-01] MEDS ORDERED: ACETAMINOPHEN 325 MG TABLET PO ONE (05:04)
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
[2019-02-01] MEDS ORDERED: DIAZEPAM 5 MG TABLET PO ONE (06:01)
[2019-02-01] MEDS ORDERED: KETOROLAC TROMETHAMINE 60 MG/2 ML SDV IM ONE (06:01)
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
[2019-02-01 07:26] VITALS: BP 148/55
== END 2019-02-01 07:28 | disposition home or self-care (01) ==
LOC: ER 00:42
DX: S16.1XXA Strain of muscle, fascia and tendon at neck level, initial encounter (principal); S39.012A Strain of muscle, fascia and tendon of lower back, initial encounter; M54.9 Dorsalgia, unspecified; V87.7XXA Person injured in collision between other specified motor vehicles (traffic), initial encounter
CPT/HCPCS: 99283; 72125; 72128; 72131; J1885

== ENCOUNTER 2019-05-16 14:57 | Emergency (ER) | payer OTHER ==
[2019-05-16 15:07] VITALS: BP 129/81
[2019-05-16] MEDS ORDERED: IBUPROFEN 800 MG TABLET PO ONE (15:09)
--- NOTE | 2019-05-16 15:13 | ER Document Report ---
HPI - HPI Time Seen by Provider: 05/16/19 15:06 Notes: Patient is a 29-year-old male with no significant past medical history who presents complaining of left medial ankle pain that began this morning. Patient states that he was long boarding (skateboard) yesterday which was his first time. He does not recall specific injury, but woke up with soreness to his ankle area. Patient states that when he dorsiflexes his foot he notices tightness and pain to the Achilles tendon area. He is otherwise able to ambulate, but does have a limp. He is urinating normally and having normal bowel movements. Pain does not radiate. Denies any headache, fever, URI, sore throat, chest pain, palpitations, syncope, cough, shortness of breath, wheeze, dyspnea, abdominal pain, nausea/vomiting/diarrhea, urinary retention, dysuria, hematuria, loss of control of bowel or bladder, numbness/tingling, muscle paralysis/weakness, or rash. - ROS Systems Reviewed and Negative: Yes All other systems reviewed and negative Past Medical History - Social History Smoking Status: Current Every Day Smoker Family History: Reviewed & Not Pertinent Renal/ Medical History: Denies: Hx Peritoneal Dialysis Past Surgical History: Reports: Hx Appendectomy, Hx Orthopedic Surgery - tendon repair R hand, Hx Tonsillectomy - Immunizations Hx Diphtheria, Pertussis, Tetanus Vaccination: Yes Vertical Provider Document - CONSTITUTIONAL Agree With Documented VS: Yes Notes: PHYSICAL EXAMINATION: GENERAL: Well-appearing, well-nourished and in no acute distress. LUNGS: Breath sounds clear to auscultation bilaterally and equal. No wheezes rales or rhonchi. HEART: Regular rate and rhythm without murmurs, rubs, gallops. Musculoskeletal: Lt foot/ankle: No ecchymosis, swelling, or deformity. FROM to passive/active. Strength 5+/5. N/V intact distal. + tenderness to the medial malleolus area and to the Achilles tendon distally without any obvious rupture noted. No bony tenderness of the foot. Achilles intact. Lis Franc maneuver neg. Anterior drawer neg. Extremities: No cyanosis, clubbing, or edema b/l. Peripheral pulses 2+. Capillary refill less than 3 seconds. NEUROLOGICAL: Normal speech, limping gait. Normal sensory, motor exams PSYCH: Normal mood, normal affect. SKIN: Warm, Dry, normal turgor, no rashes or lesions noted. - INFECTION CONTROL TRAVEL OUTSIDE OF THE [place] IN LAST 30 DAYS: No Course - Re-evaluation Re-evalutation: 05/16/19 Patient is an afebrile, well-hydrated, 29-year-old male who presents to the ED with left ankle pain which I suspect to be tendinitis. Vitals are acceptable without any significant tachycardia, tachypnea, or hypoxia. PE is otherwise unr emarkable for any neurovascular compromise, obvious tendon/ligament rupture, obvious fracture/dislocation, septic joint. X-ray was unremarkable for any acute pathology. Patient declined crutches. Motrin given today. Patient is nontoxic-appearing. Patient is able to ambulate and weight-bear. No other labs or imaging warranted at this time based on H&P. Conservative measures otherwise for symptoms. Recheck with your PCM in 3-5 days. Consider consult orthopedics. Return to the ED with any worsening/concerning symptoms otherwise as reviewed in discharge. Patient is in agreement. - Vital Signs Vital signs: Temp Pulse Resp BP Pulse Ox 98.0 F 88 16 129/81 H 97 05/16/19 15:02 05/16/19 15:02 05/16/19 15:02 05/16/19 15:02 05/16/19 15:02 Discharge - Discharge Clinical Impression: Left ankle pain Qualifiers: Chronicity: acute Qualified Code(s): M25.572 - Pain in left ankle and joints of left foot Condition: Stable Disposition: HOME, SELF-CARE Additional Instructions: Rest, Ice, Compression, Elevation Tylenol/ibuprofen as needed Light stretches daily Strength exercises as able Moist heat and massage may help F/u with your PCP in 3-5 days for a recheck Consider consult(s) with Orthopedics/physical therapy for ongoing/worsening symptoms Return to the ED with any worsening symptoms and/or development of fever, headache, chest pain, palpitations, syncope, shortness of breath, trouble breathing, abdominal pain, n/v/d, muscle weakness/paralysis, numbness/tingling, swelling, redness, or other worsening symptoms that are concerning to you. Prescriptions: Ibuprofen [Motrin 800 mg Tablet] 800 mg PO Q8H PRN #15 tab PRN Reason: Forms: Elevated Blood Pressure, Smoking Cessation Education Referrals: [facility] [Provider Group] - Follow up as needed
--- NOTE | 2019-05-16 16:59 | RADIOLOGY REPORT (SQ) ---
EXAM DESCRIPTION: ANKLE LEFT COMPLETE COMPLETED DATE/TIME: 05/16/2019 3:31 pm REASON FOR STUDY: left medial ankle pain COMPARISON: None. NUMBER OF VIEWS: Three views. TECHNIQUE: AP, lateral, and oblique without weight bearing radiographic images acquired of the left ankle. LIMITATIONS: None. FINDINGS: MINERALIZATION: Normal. BONES: No acute fracture or dislocation. No worrisome bone lesions. Dorsal osteophytes. JOINTS: No effusions. SOFT TISSUES: No soft tissue swelling. No foreign body. OTHER: No other significant finding. IMPRESSION: Dorsal osteophytes of the talus. No acute fracture. TECHNICAL DOCUMENTATION: JOB ID: [id number] [employer]- All Rights Reserved Reading location - IP/workstation name: [email or web address]
== END 2019-05-16 17:09 | disposition home or self-care (01) ==
LOC: ER 14:57
DX: M25.572 Pain in left ankle and joints of left foot (principal); F17.200 Nicotine dependence, unspecified, uncomplicated

== ENCOUNTER 2019-09-06 19:00 | Emergency (ER) | payer SELFPAY ==
[2019-09-06 19:26] VITALS: BP 150/134
[2019-09-06] MEDS ORDERED: BUPIVACAINE HCL 0.5 % INJ/PF 30 ML SDV INJ ONE (19:52)
[2019-09-06] MEDS ORDERED: LIDOCAINE 1% INJ-PF (10 MG/ML) 30 ML SDV INFIL ONE (19:53)
[2019-09-06] MEDS ORDERED: HYDROCODONE/ACETAMINOPHEN 5-325 MG (6 TAB/ER DISP) PO PRN (19:53)
--- NOTE | 2019-09-06 20:11 | ER Document Report ---
HPI - HPI Time Seen by Provider: 09/06/19 19:47 Pain Level: 5 Notes: 29-year-old male patient presenting to the emergency department chief complaint of dental pain. Patient reports fractured tooth at tooth #19. He states he has been using a temporary filling, the filling fell out today. Denies any fever or drainage from the area. - CONSTITUTIONAL Constitutional: DENIES: Fever, Chills Past Medical History - General Information source: Patient - Social History Smoking Status: Current Every Day Smoker Family History: Reviewed & Not Pertinent Patient has suicidal ideation: No Patient has homicidal ideation: No - Medical History Medical History: Negative Renal/ Medical History: Denies: Hx Peritoneal Dialysis Past Surgical History: Reports: Hx Appendectomy, Hx Orthopedic Surgery - tendon repair R hand, Hx Tonsillectomy - Immunizations Hx Diphtheria, Pertussis, Tetanus Vaccination: Yes Vertical Provider Document - CONSTITUTIONAL Notes: PHYSICAL EXAMINATION: GENERAL: Well-appearing, well-nourished and in no acute distress. HEAD: Atraumatic, normocephalic. EYES: Pupils equal round extraocular movements intact, conjunctiva are normal. ENT: Nares patent, fractured tooth at tooth #19, surrounding erythema, no obvious drainable abscess, no evidence of Gil's angina. No facial swelling. NECK: Normal range of motion LUNGS: No respiratory distress Musculoskeletal: Normal range of motion NEUROLOGICAL: Normal speech, normal gait. PSYCH: Normal mood, normal affect. SKIN: Warm, Dry, normal turgor, no rashes or lesions noted. - INFECTION CONTROL TRAVEL OUTSIDE OF THE [place] IN LAST 30 DAYS: No Course - Re-evaluation Re-evalutation: Patient given dental block with cocaine and lidocaine. He will be started on antibiotics. Encourage patient to follow-up with dentist for either a filling or extraction. Patient and family member at bedside verbalized understanding and agreement with this plan. - Vital Signs Vital signs: Temp Pulse Resp BP Pulse Ox 98.3 F 76 20 150/134 H 98 09/06/19 19:25 09/06/19 19:25 09/06/19 19:25 09/06/19 19:25 09/06/19 19:25 Discharge - Discharge Clinical Impression: Dental infection Fractured tooth Qualifiers: Encounter type: initial encounter Fracture type: closed Qualified Code(s): S02.5XXA - Fracture of tooth (traumatic), initial encounter for closed fracture Condition: Stable Disposition: HOME, SELF-CARE Additional Instructions: You have been seen for dental pain. It is very important that you follow-up with a dentist for definitive care. Please return if you develop fever greater than 101, swelling in your face, vomiting, difficulty breathing or swallowing, o r any other symptoms that are concerning to you. For pain you should take ibuprofen 800 mg every 8 hours as needed. Prescriptions: Clindamycin HCl 300 mg PO QID #24 capsule Forms: Return to Work
== END 2019-09-06 20:20 | disposition home or self-care (01) ==
LOC: ER 19:00
DX: S02.5XXA Fracture of tooth (traumatic), initial encounter for closed fracture (principal); K04.7 Periapical abscess without sinus; K08.89 Other specified disorders of teeth and supporting structures; X58.XXXA Exposure to other specified factors, initial encounter; F17.200 Nicotine dependence, unspecified, uncomplicated
CPT/HCPCS: 99282; J3490 ×2

== ENCOUNTER 2019-10-09 06:01 | Emergency (ER) | payer SELFPAY ==
[2019-10-09] MEDS ORDERED: NORMAL SALINE 1000 ML 1,000 ML IV ONE (08:13)
--- NOTE | 2019-10-09 08:29 | ER Document Report ---
ED General - General Chief Complaint: Probable Seizure Stated Complaint: SEIZURE Time Seen by Provider: 10/09/19 08:20 Primary Care Provider: ANUP LERNER MD [EMERITUS] - Follow up in 1 week TRAVEL OUTSIDE OF THE [place] IN LAST 30 DAYS: No - HPI Notes: 29-year-old male to the emergency department with complaints of possible seizure x2 this morning. Apparently he and his friend who is bedside were up most of the evening and then the patient took meth at about 11 PM last night. Apparently they were trying to go to sleep when the patient began to shake all over but was able to talk to his friend during this episode. Briefly after the shaking the patient had an episode where he "went unconscious" and his friend had to wake him up. The friend states that he also had a seizure last week. The patient has been trying to quit drugs and is also been feeling down because he lost his job. He does not have a physician. He has never had seizures before. He denies any fevers or chills. He denies any chest pain or shortness of breath. He denies any abdominal pain, nausea, vomiting, diarrhea. Patient is a poor historian. - Related Data Allergies/Adverse Reactions: Penicillins Allergy (Verified 12/08/18 13:48) Past Medical History - General Information source: Patient, Friend - Social History Smoking Status: Current Every Day Smoker Frequency of alcohol use: None Drug Abuse: Marijuana, Methamphetamine Lives with: Friend Family History: Reviewed & Not Pertinent Patient has suicidal ideation: No Patient has homicidal ideation: No Renal/ Medical History: Denies: Hx Peritoneal Dialysis Past Surgical History: Reports: Hx Appendectomy, Hx Orthopedic Surgery - tendon repair R hand, Hx Tonsillectomy - Immunizations Hx Diphtheria, Pertussis, Tetanus Vaccination: Yes Review of Systems - Review of Systems Constitutional: Chills. denies: Fever EENT: No symptoms reported Cardiovascular: Syncope - possible syncopal episode. denies: Chest pain, Palpit ations, Heart racing, Dizziness, Lightheaded Respiratory: denies: Cough, Short of breath Gastrointestinal: denies: Abdominal pain, Diarrhea, Nausea, Vomiting Genitourinary: No symptoms reported Musculoskeletal: No symptoms reported Hematologic/Lymphatic: No symptoms reported Neurological/Psychological: See HPI -: Yes All other systems reviewed and negative Physical Exam - Vital signs Vitals: Pulse Ox 100 10/09/19 06:10 Selected Entries 10/09/19 10/09/19 07:01 09:00 Temperature 97.4 F Heart Rate ( 95 Monitors) Blood Pressure 128/78 H Blood Pressure 94 Mean O2 Sat by Pulse 99 Oximetry Interpretation: Normal - General General appearance: Appears well, Alert - HEENT Head: Normocephalic, Atraumatic Eyes: Normal Pupils: PERRL Ears: Normal External canal: Normal Tympanic membrane: Normal Sinus: Normal Nasal: Normal Mouth/Lips: Normal Mucous membranes: Normal Pharynx: Normal Neck: Normal, Supple. No: Lymphadenopathy, Meningismus - Respiratory Respiratory status: No respiratory distress Chest status: Nontender Breath sounds: Normal. No: Rales, Rhonchi, Wheezing Chest palpation: Normal - Cardiovascular Rhythm: Regular Heart sounds: Normal auscultation Murmur: No - Abdominal Inspection: Normal Distension: No distension Bowel sounds: Normal Tenderness: Nontender. No: Tender, McBurney's point, Nash's sign, Guarding, Rebound Organomegaly: No organomegaly - Back Back: Normal, Nontender - Neurological Neuro grossly intact: Yes Cognition: Normal Orientation: AAOx4 Brigantine Coma Scale Eye Opening: Spontaneous Israel Coma Scale Verbal: Oriented Israel Coma Scale Motor: Obeys Commands Brigantine Coma Scale Total: 15 Speech: Normal Cranial nerves: Normal Cerebellar coordination: Normal. 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 No: Pronator drift Sensory: Normal - Psychological Associated symptoms: Normal affect, Normal mood - Skin Skin Temperature: Warm Skin Moisture: Dry Skin Color: Normal Course - Re-evaluation Re-evalutation: 10/09/19 Impression: Unspecified abnormal movements of the body, methamphetamine abuse. Suspect that what refraining patient were experiencing with side effects from methamphetamine and not actually a seizure disorder. Lab work is reassuring and head CT is negative. EKG is also reassuring. Patient has been doing well in the department. He has not had any further episodes of any seizure like movements. He has tolerated p.o. in the emergency department. Will discharge home and have him follow-up with neurology. Encouraged to stop using methamphetamine. I discussed with my ER attending, Dr. Stephens and he agrees with the plan. - Vital Signs Vital signs: Temp Pulse Resp BP Pulse Ox 97.4 F 83 16 141/88 H 100 10/09/19 09:00 10/09/19 10:46 10/09/19 10:46 10/09/19 10:46 10/09/19 10:46 - Laboratory Result Diagrams: 10/09/19 06:17 10/09/19 06:17 Laboratory results interpreted by me: 10/09/19 09:45 Urine Protein 30 H Urine Ketones TRACE H Urine Urobilinogen 4.0 H - Diagnostic Test Radiology reviewed: Image reviewed, Reports reviewed - EKG Interpretation by Me Additional EKG results interpreted by me: 10/09/19 Rate: 92, rhythm: Sinus, interpretation: No STEMI, no acute changes from prior on 05/15/2018 Discharge - Discharge Clinical Impression: Methamphetamine use, Abnormal movements Condition: Stable Disposition: HOME, SELF-CARE Additional Instructions: Follow-up with neurology as listed below. Return if any worsening symptoms. Stop using methamphetamine. It is believed that likely your abnormal movements and altered sensorium was related to your methamphetamine use. Push fluids. Referrals: ANUP LERNER MD [EMERITUS] - Follow up in 1 week
[2019-10-09 08:40] LABS: ABSOLUTE EOSINOPHILS # (AUTO) 0.2 10^3/uL (0.0-0.6); ABSOLUTE LYMPHOCYTES (AUTO) 2.5 10^3/uL (0.5-4.7); ABSOLUTE MONOCYTES (AUTO) 0.7 10^3/uL (0.1-1.4); ABSOLUTE NEUT (AUTO) 6.6 10^3/uL (1.7-8.2); BASOPHILS % (AUTO) 0.4 % (0-2); EOSINOPHILS % (AUTO) 1.6 % (0-6); HEMATOCRIT 42.6 % (37.9-51.0); LYMPHOCYTES % (AUTO) 24.9 % (13-45); MEAN CORPUSCULAR HEMOGLOBIN 31.7 pg (27.0-33.4); MEAN CORPUSCULAR HGB CONC 35.3 g/dL (32.0-36.0); MEAN CORPUSCULAR VOLUME 90 fl (80-97); MONOCYTES % (AUTO) 7.3 % (3-13); PLATELET COUNT 199 10^3/uL (150-450); RED BLOOD COUNT 4.74 10^6/uL (4.35-5.55); RED CELL DISTRIBUTION WIDTH 13.2 % (11.5-14.0); SEGMENTED NEUTROPHILS % (AUTO) 65.8 % (42-78); TOTAL CELLS COUNTED % (AUTO) 100 %
[2019-10-09 08:53] LABS: ALBUMIN 4.4 g/dL (3.5-5.0); ALKALINE PHOSPHATASE 59 U/L (38-126); ANION GAP 8 (5-19); ASPARTATE AMINO TRANSFERASE 37 U/L (17-59); BILIRUBIN,TOTAL 0.7 mg/dL (0.2-1.3); BLOOD UREA NITROGEN 11 mg/dL (7-20); CALCIUM 9.2 mg/dL (8.4-10.2); CARBON DIOXIDE 27 mmol/L (22-30); CHLORIDE 106 mmol/L (98-107); GLUCOSE 90 mg/dL (75-110); POTASSIUM 4.1 mmol/L (3.6-5.0); TOTAL PROTEIN 6.8 g/dL (6.3-8.2)
--- NOTE | 2019-10-09 09:02 | RADIOLOGY REPORT (SQ) ---
EXAM DESCRIPTION: CT HEAD WITHOUT COMPLETED DATE/TIME: 10/09/2019 8:48 am REASON FOR STUDY: possible seizure COMPARISON: None. TECHNIQUE: Axial images acquired through the brain without intravenous contrast. Images reviewed wi th bone, brain and subdural windows. Additional sagittal and coronal reconstructions were generated. Images stored on PACS. All CT scanners at this facility use dose modulation, iterative reconstruction, and/or weight based d osing when appropriate to reduce radiation dose to as low as reasonably achievable (ALARA). [facility]: Dose Right [facility]: CareDose [facility]: Dose Right [facility]: Teradose 4D [facility]: [employer] RADIATION DOSE: CT Rad equipment meets quality standard of care and radiation dose reduction techniq ues were employed. CTDIvol: 53.2 mGy. DLP: 1928 mGy-cm. mGy. LIMITATIONS: None. FINDINGS: VENTRICLES: Normal size and contour. CEREBRUM: No masses. No hemorrhage. No midline shift. No evidence for acute infarction. Normal gra y/white matter differentiation. No areas of low density in the white matter. CEREBELLUM: No masses. No hemorrhage. No alteration of density. No evidence for acute infarction. EXTRAAXIAL SPACES: No fluid collections. No masses. ORBITS AND GLOBE: No intra- or extraconal masses. Normal contour of globe without masses. CALVARIUM: No fracture. PARANASAL SINUSES: No fluid or mucosal thickening. SOFT TISSUES: No mass or hematoma. OTHER: No other significant finding. IMPRESSION: NORMAL BRAIN CT WITHOUT CONTRAST. EVIDENCE OF ACUTE STROKE: NO. COMMENT: Quality ID # [id number]: Final reports with documentation of one or more dose reduction techniques (e.g., Automated exposure control, adjustment of the mA and/or kV according to patient size, use of iterative reconstruction technique) TECHNICAL DOCUMENTATION: JOB ID: [id number] 2010 [employer]- All Rights Reserved Reading location - IP/workstation name: [email or web address]
[2019-10-09 10:09] LABS: APPEARANCE,URINE SLIGHTLY-CLOUDY; BILIRUBIN,URINE NEGATIVE (NEGATIVE); COLOR,URINE YELLOW; GLUCOSE, URINE NEGATIVE (NEGATIVE); KETONES,URINE TRACE mg/dL (NEGATIVE); LEUKOCYTE ESTERASE,URINE NEGATIVE (NEGATIVE); NITRITE,URINE NEGATIVE (NEGATIVE); PROTEIN,URINE 30 mg/dL (NEGATIVE); URINE SPECIFIC GRAVITY 1.024
[2019-10-09 10:30] LABS: URINE BARBITURATES SCREEN NEGATIVE; URINE BENZODIAZEPINES SCREEN NEGATIVE; URINE COCAINE SCREEN NEGATIVE; URINE METHADONE SCREEN NEGATIVE; URINE PHENCYCLIDINE SCREEN NEGATIVE
[2019-10-09 11:03] LABS: URINE MARIJUANA (THC) SCREEN UNCONFIRMED POSITIVE
[2019-10-09 12:11] VITALS: BP 140/70
--- NOTE | 2019-10-09 18:24 | EKG REPORT ---
SEVERITY:- NORMAL ECG - SINUS RHYTHM : Confirmed by: Jailyn Magaña MD 09-Oct-2019 18:23:31
== END 2019-10-09 12:00 | disposition home or self-care (01) ==
LOC: ER 06:01
DX: F19.10 Other psychoactive substance abuse, uncomplicated (principal); R25.1 Tremor, unspecified; R56.9 Unspecified convulsions; F12.10 Cannabis abuse, uncomplicated; R68.83 Chills (without fever); Z88.0 Allergy status to penicillin; F17.200 Nicotine dependence, unspecified, uncomplicated
CPT/HCPCS: 93005; 99285; 96360; 36415; 85025; 80053; 81001; 80307; 70450; 93010; J7030

== ENCOUNTER 2020-08-02 02:05 | Emergency (ER) | payer SELFPAY ==
[2020-08-02] MEDS ORDERED: LIDOCAINE 1%/EPINEPHRINE INJ 20 ML VIAL INJ ONE (03:13)
[2020-08-02] MEDS ORDERED: LIDOCAINE 4%/TETRACAINE 0.5%/EPI 0.18% 5 ML TOPICAL SOLN TOP ONE (03:13)
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
[2020-08-02 05:34] VITALS: BP 152/90
== END 2020-08-02 05:34 | disposition home or self-care (01) ==
LOC: ER 02:05
DX: S51.812A Laceration without foreign body of left forearm, initial encounter (principal); W26.8XXA Contact with other sharp object(s), not elsewhere classified, initial encounter; F17.200 Nicotine dependence, unspecified, uncomplicated
CPT/HCPCS: 99283; 12004; J3490 ×2

== ENCOUNTER 2020-09-02 10:43 | Emergency (ER) | payer OTHER ==
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
[2020-09-02 13:49] VITALS: BP 124/70
== END 2020-09-02 13:50 | disposition home or self-care (01) ==
LOC: ER 10:43
DX: S60.511A Abrasion of right hand, initial encounter (principal); V03.90XA Pedestrian on foot injured in collision with car, pick-up truck or van, unspecified whether traffic or nontraffic accident, initial encounter; Y93.89 Activity, other specified; S30.810A Abrasion of lower back and pelvis, initial encounter
CPT/HCPCS: 99283